=== PATIENT | female | born 1970 | race Caucasian/White ===

== ENCOUNTER 2020-03-08 11:20 | Emergency (ER) | payer BC, OTHER ==
--- NOTE | 2020-03-08 13:39 | RAD ---
XR Hip Rt 2-3 View INDICATION: Right hip pain COMPARISON: None FINDINGS: Bones: No acute osseous abnormality. Bone mineralization appears within normal limits. Hip joint: Radiographically normal. SI joints and symphysis pubis: Radiographically normal. Intrapelvic contents: Visualized bowel gas pattern is within normal limits. Surrounding soft tissues: There are multiple phleboliths within the lower pelvis. IMPRESSION: 1. No acute osseous abnormality.
[2020-03-08] MEDS ORDERED: Ketorolac Tromethamine 30 MG/ML VIAL ONE (13:54)
== END 2020-03-08 14:56 | disposition home or self-care (01) ==
LOC: ERS 11:20
DX: G57.01 Lesion of sciatic nerve, right lower limb (principal)
CPT/HCPCS: 96372; J1885

== ENCOUNTER 2020-03-14 09:02 | Emergency (ER) | payer BC ==
[2020-03-14 10:39] LABS: Pregnancy Test - Urine (BHCG) Negative (Negative); Pregu Control Background? CLEAR/WHITE (CLR/WHITE); Pregu Control Bar Appear? YES (CONTROL BAR); Specific Gravity 1.006 (1.002-1.036)
--- NOTE | 2020-03-14 11:48 | CT ---
CT LUMBAR SPINE NONCONTRAST: Date: 03/14/2020 HISTORY: 49-year-old female with low back pain and lumbar radiculopathy. COMPARISON: No prior imaging studies of the lumbar spine of any modality. FINDINGS: Five lumbar-type vertebrae. Chronic mild anterior wedging of T12, and minimally of L1. No high grade vertebral body collapse. No scoliosis. T12-L1: Chronic shallow defects at superior end plate of L1. Mild to moderate disc space narrowing. No central or neural foraminal stenosis. Mild disc bulge. L1-2: Severe disc space narrowing, with multiple tiny end late defects. Vacuum disc phenomenon. Larg e regions of end plate sclerosis which involve approximately half of each of the vertebral body volum es. Grade I retrolisthesis of L1 on L2. Diffuse disc bulge-osteophytic bar complex significantly inde nts the ventral surface of the thecal sac, causing at least mild central spinal canal stenosis. Sever e bilateral neural foraminal stenosis. Mild bilateral facet DJD. L2-3: Mild disc space narrowing. Diffuse disc bulge. Mild ligamentum flavum thickening. Mild to mode rate central spinal canal stenosis. Mild bilateral neural foraminal stenosis. L3-4: Mild disc space narrowing. Prominent diffuse disc bulge plus moderate ligamentum flavum thicke sim, result in severe central spinal canal stenosis. Mild right and mild to moderate left neural for aminal stenosis. Moderate bilateral facet DJD. L4-5: Mild disc space narrowing. Diffuse disc bulge. Moderate to severe ligamentum flavum thickening . Moderate or severe central spinal canal stenosis with lateral recess stenosis bilaterally. Mild to moderate bilateral neural foraminal stenosis. Moderate bilateral facet DJD. L5-S1: Somewhat large broad based and irregular central and bilateral paracentral ossified chronic d isc herniation deeply protrudes into the anterior aspect of the spinal canal, indenting the thecal sa c, and chronically abutting the bilateral S1 nerve roots. Moderate central spinal canal stenosis and lateral recess stenosis bilaterally. Mild to moderate bilateral neural foraminal stenosis. Moderate t o severe disc space narrowing. Vacuum disc phenomenon. Retrolisthesis of L5 on S1. Moderate bilateral degenerative facet hypertrophy. IMPRESSION: 1. Lumbar spondylosis which includes severe degenerative disc disease at L1-L2; moderate to severe d egenerative disc disease at L5-S1; and multilevel facet osteoarthrosis, greatest at L4-5. 2. High grade central spinal canal stenoses at L3-4 and L4-5, and also at L5-S1 (where there is a la rge ossified chronic disc herniation). POS: [facility]
[2020-03-14] MEDS ORDERED: Ketorolac Tromethamine 30 MG/ML VIAL ONE (12:11)
== END 2020-03-14 12:18 | disposition home or self-care (01) ==
LOC: ERS 09:02
DX: M54.5 Low back pain (principal)
CPT/HCPCS: 72131; 81025; 96372; J1885